=== PATIENT | female | born 1945 | race Caucasian/White ===

== ENCOUNTER → 2016-06-19 | Day surgery (SDC) | payer MEDICARE, OTHER ==
[~2016-06-19] MED LIST: ALENDRONATE SOD70 MG PO; ASPIRIN EC81 M1 PO; IBUPROFEN800 MG PO; LEVOXYL50 MC1 PO; LIPITOR PO; PREVACID SOLUTA30 M1 PO; TOPROL XL PO; VIT D2 PO
--- NOTE | ~2016-06-19 | OR ---
Unit #: [id number] #: [id number] Patient: ARNULFO CASTRO [id number] [address] [place], [place] [address] [id number] MR#: [id number] NAME: ARNULFO CASTRO ROOM: Date of Procedure: 06/19/2016 Admission Date: 06/19/2016 Surgeon: Jeison Benjamin Jr., M.D. : 1945 Attending Physician: Jeison Benjamin Jr., M.D. Primary Care Physician: Emil Long M.D. OPERATIVE REPORT INDICATIONS FOR PROCEDURE The patient is a 70-year-old white female, who is a nurse here in [place], who has had a known past history of colon polyps. Her last colonoscopy was over 3 years ago. Her polyps have always been benign in the past. She is brought at this time for followup colonoscopy to rule out recurrent polyps and/or occult malignancy. PREOPERATIVE DIAGNOSIS Past history of colon polyps, rule out recurrence. POSTOPERATIVE DIAGNOSES The patient was noted to have diverticulosis of left colon with 2 small polyps, one approximately 3 mm in diameter in the sigmoid at 40 cm and another one at 65 cm in the descending colon that was 1 to 2 mm in diameter. There were no other obvious polyps. ANESTHESIA MAC anesthesia. PROCEDURE PERFORMED Flexible colonoscopy to the cecum with cold biopsies of polyps in the descending colon and the sigmoid colon. DESCRIPTION OF PROCEDURE The patient was positioned in [place] position with left side down. After being given MAC anesthesia, digital rectal examination was performed, which revealed no palpable mass or tenderness. No blood or stool within the rectal ampulla. The Olympus colonoscope was advanced through the anal canal up the rectum and retroflexed down to the area of the anorectal region. There were no evidence of any fissures and no significant internal hemorrhoids. The scope was then straightened and advanced up the rectosigmoid and in the sigmoid, where there were multiple diverticula present. At approximately 40 cm, there was a small 3 to 4 mm polyp, which was basically removed with 3 to 4 bites with the cold biopsy forceps without bleeding. The scope was then advanced up in the descending colon and at approximately 65 cm, there was a small 1 to 2 mm polyp, which likewise was biopsied with cold biopsy forceps and removed with 2 bites without bleeding. The scope was then advanced around the splenic flexure and the transverse colon, around hepatic flexure and ascending colon down in the area of the cecum. The light from the tip of the scope could be seen transilluminating through the right lower quadrant abdominal wall area. There was a tiny polyp of the base of the appendix, which was Unit #: [id number] #: [id number] Patient: ARNULFO CASTRO removed with one bite with the cold biopsy forceps. It was only 1 mm or so in diameter. Multiple attempts advancing the scope up the distal ileum were unsuccessful. The scope was slowly removed. There were no tumors except for the 3 polyps described above. There were no other polyps, no cancer, no AVMs. No evidence of any colitis or acute diverticulitis. The caliber of the colon appeared normal throughout without evidence of narrowing or obstruction. The scope was removed. The patient tolerated the procedure well and discharged in satisfactory condition. Dictated by... Jeison Benjamin Jr., M.Komal. ROSA/regina TD: 06/19/2016 23:25 JOB #: [id number] OPERATIVE REPORT Page 1 of 1 X Jeison Benjamin MD X PROCEDURE OPERATIVE NOTE
== END | disposition home or self-care (01) ==
LOC: COPS 10:32
DX: Z12.11 Encounter for screening for malignant neoplasm of colon (principal); D12.5 Benign neoplasm of sigmoid colon; D12.4 Benign neoplasm of descending colon; K57.30 Diverticulosis of large intestine without perforation or abscess without bleeding; K21.9 Gastro-esophageal reflux disease without esophagitis; M19.90 Unspecified osteoarthritis, unspecified site; Z90.49 Acquired absence of other specified parts of digestive tract; Z90.710 Acquired absence of both cervix and uterus; Z88.5 Allergy status to narcotic agent; Z88.6 Allergy status to analgesic agent
CPT/HCPCS: 88305